=== PATIENT | male | born 1990 | race Caucasian/White ===

== ENCOUNTER 2019-12-14 09:47 | Emergency (ER) | payer OTHER ==
[~2019-12-14] VITALS: Ht 188 cm; Wt 118.2 kg
[~2019-12-14 09:47] MED LIST: FLOMAX0.4 MG PO; NORCO 325 MG-51 TA1 PO
[2019-12-14] MEDS ORDERED: ZYRTEC ALLERGY10 MG PO (11:01)
[2019-12-14] MEDS ORDERED: AUGMENTIN 875-1 EAC1 PO (11:01)
[2019-12-14 11:05] VITALS: BP 116/72
== END 2019-12-14 11:06 | disposition home or self-care (01) ==
LOC: ED 09:47
DX: J34.89 Other specified disorders of nose and nasal sinuses (principal)

== ENCOUNTER 2020-10-24 20:03 | Emergency (ER) | payer OTHER ==
[~2020-10-24] VITALS: Ht 188 cm; Wt 117.9 kg
[~2020-10-24 20:03] MED LIST changes: +AUGMENTIN 875-1 EAC1 PO; +ZYRTEC ALLERGY10 MG PO
[2020-10-24 21:07] LABS: HEMATOCRIT 42.7 % (42.0-52.0); HEMOGLOBIN 14.3 g/dL (13.5-18.0); MEAN CELL VOLUME 87 fl (78-100); MEAN CORPUSCULAR HEMOGLOBIN 29 pg (27-31); MEAN CORPUSCULAR HGB CONC 34 g/dL (33-37); MEAN PLATELET VOLUME 8.4 fl (7.4-10.4); PLATELET COUNT 186 K/mm3 (130-400); RED BLOOD COUNT 4.91 M/mm3 (4.20-5.60); RED CELL DISTRIBUTION WIDTH 12.4 % (11.5-14.5); WHITE BLOOD COUNT 3.3 K/mm3 (4.8-10.8)
[2020-10-24 21:25] LABS: LYMPHOCYTE 39 % (20-51); MONOCYTE 11 % (3-10); NEUTROPHILS 49 % (42-75)
[2020-10-24 21:54] VITALS: BP 124/88
== END 2020-10-24 21:54 | disposition home or self-care (01) ==
LOC: ED 20:03
PROVIDERS: Family Medicine
DX: U07.1 COVID-19 (principal)

== ENCOUNTER 2021-03-02 08:17 | Emergency (ER) | payer OTHER ==
[2021-03-02 10:04] VITALS: BP 143/93
== END 2021-03-02 10:10 | disposition home or self-care (01) ==
LOC: ED 08:17
DX: S93.401A Sprain of unspecified ligament of right ankle, initial encounter (principal); S90.31XA Contusion of right foot, initial encounter; Z88.5 Allergy status to narcotic agent; X58.XXXA Exposure to other specified factors, initial encounter; Y99.0 Civilian activity done for income or pay

== ENCOUNTER 2021-09-29 00:13 | Emergency (ER) | payer OTHER ==
[~2021-09-29] VITALS: Ht 188 cm; Wt 122.4 kg
[2021-09-29 01:09] LABS: BASO # 0.03 K/mm3 (0.02-0.10); EOS # 0.52 K/mm3 (0.04-0.40); EOS % 8.9 % (0.0-4.0); HEMOGLOBIN 16.4 g/dL (13.5-18.0); LYMPH# 1.72 K/mm3 (1.50-4.00); MEAN CELL VOLUME 86 fl (78-100); MEAN CORPUSCULAR HEMOGLOBIN 30 pg (27-31); MEAN CORPUSCULAR HGB CONC 34 g/dL (33-37); MEAN PLATELET VOLUME 8.8 fl (7.4-10.4); MONO # 0.62 K/mm3 (0.20-0.80); NEU # 2.96 K/mm3 (1.40-6.50); PLATELET COUNT 255 K/mm3 (130-400); RED BLOOD COUNT 5.56 M/mm3 (4.20-5.60); RED CELL DISTRIBUTION WIDTH 12.2 % (11.5-14.5); WHITE BLOOD COUNT 5.9 K/mm3 (4.8-10.8)
[2021-09-29 01:11] LABS: ALBUMIN 4.4 g/dL (3.5-5.0)
[2021-09-29 01:12] LABS: CALCIUM 9.5 mg/dL (8.3-10.5)
[2021-09-29 01:13] LABS: TOTAL PROTEIN 7.5 g/dL (6.4-8.3)
[2021-09-29 01:15] LABS: TOTAL BILIRUBIN 0.5 mg/dL (0.2-1.2)
[2021-09-29 01:26] LABS: URINE APPEARANCE CLOUDY; URINE BILIRUBIN NEGATIVE (NEGATIVE); URINE BLOOD 250 ery/uL (NEGATIVE); URINE COLOR YELLOW; URINE GLUCOSE NEGATIVE (NEGATIVE); URINE KETONE NEGATIVE (NEGATIVE); URINE LEUKOCYTE ESTERASE NEGATIVE (NEGATIVE); URINE NITRATE NEGATIVE (NEGATIVE); URINE PROTEIN(semi-quant) 1+ mg/dL (NEGATIVE); URINE UROBILINOGEN NORMAL (NORMAL)
[2021-09-29 01:27] LABS: URINE MUCUS PRESENT (NOT PRESENT)
[2021-09-29 07:58] LABS: BASO # 0.02 K/mm3 (0.02-0.10); EOS # 0.23 K/mm3 (0.04-0.40); EOS % 5.6 % (0.0-4.0); HEMATOCRIT 40.3 % (42.0-52.0); HEMOGLOBIN 13.5 g/dL (13.5-18.0); MEAN CELL VOLUME 89 fl (78-100); MEAN CORPUSCULAR HEMOGLOBIN 30 pg (27-31); MEAN CORPUSCULAR HGB CONC 34 g/dL (33-37); MEAN PLATELET VOLUME 8.9 fl (7.4-10.4); MONO # 0.46 K/mm3 (0.20-0.80); NEU # 2.27 K/mm3 (1.40-6.50); PLATELET COUNT 208 K/mm3 (130-400); RED BLOOD COUNT 4.55 M/mm3 (4.20-5.60); RED CELL DISTRIBUTION WIDTH 12.2 % (11.5-14.5); WHITE BLOOD COUNT 4.1 K/mm3 (4.8-10.8)
[2021-09-29 08:08] LABS: ALBUMIN 3.4 g/dL (3.5-5.0)
[2021-09-29 08:09] LABS: POTASSIUM 3.9 mmol/L (3.5-5.1)
[2021-09-29 08:10] LABS: CALCIUM 8.3 mg/dL (8.3-10.5)
[2021-09-29 08:11] LABS: TOTAL PROTEIN 5.8 g/dL (6.4-8.3)
[2021-09-29 08:13] LABS: TOTAL BILIRUBIN 0.4 mg/dL (0.2-1.2)
[2021-09-29 08:18] VITALS: BP 143/88
[2021-09-29] MEDS ORDERED: NORCO 10-325 T1 EACH PO (10:03)
== END 2021-09-29 08:18 | disposition home or self-care (01) ==
LOC: ED 00:13
PROVIDERS: Family Medicine; Nurse Practitioner
DX: N13.2 Hydronephrosis with renal and ureteral calculous obstruction (principal); Z20.822 Contact with and (suspected) exposure to COVID-19
CPT/HCPCS: J1885; J2270; J2405; J7030

== ENCOUNTER 2021-10-06 10:40 | Emergency (ER) | payer OTHER ==
[~2021-10-06] VITALS: Ht 188 cm; Wt 122.1 kg
[~2021-10-06 10:40] MED LIST changes: +NORCO 10-325 T1 EACH PO
[2021-10-06 12:09] LABS: BASO # 0.06 K/mm3 (0.02-0.10); EOS % 8.3 % (0.0-4.0); HEMATOCRIT 48.4 % (42.0-52.0); HEMOGLOBIN 16.5 g/dL (13.5-18.0); LYMPH# 1.55 K/mm3 (1.50-4.00); MEAN CELL VOLUME 86 fl (78-100); MEAN CORPUSCULAR HEMOGLOBIN 29 pg (27-31); MEAN CORPUSCULAR HGB CONC 34 g/dL (33-37); MEAN PLATELET VOLUME 8.4 fl (7.4-10.4); MONO # 0.32 K/mm3 (0.20-0.80); PLATELET COUNT 309 K/mm3 (130-400); RED BLOOD COUNT 5.64 M/mm3 (4.20-5.60); RED CELL DISTRIBUTION WIDTH 12.3 % (11.5-14.5); WHITE BLOOD COUNT 7.2 K/mm3 (4.8-10.8)
[2021-10-06 12:14] LABS: ALBUMIN 4.6 g/dL (3.5-5.0); POTASSIUM 4.3 mmol/L (3.5-5.1)
[2021-10-06 12:15] LABS: CALCIUM 9.7 mg/dL (8.3-10.5)
[2021-10-06 12:17] LABS: TOTAL PROTEIN 8.1 g/dL (6.4-8.3)
[2021-10-06 12:18] LABS: TOTAL BILIRUBIN 0.4 mg/dL (0.2-1.2)
[2021-10-06 12:26] LABS: URINE APPEARANCE CLEAR; URINE BILIRUBIN NEGATIVE (NEGATIVE); URINE BLOOD 250 ery/uL (NEGATIVE); URINE COLOR YELLOW; URINE GLUCOSE NEGATIVE (NEGATIVE); URINE KETONE NEGATIVE (NEGATIVE); URINE LEUKOCYTE ESTERASE NEGATIVE (NEGATIVE); URINE NITRATE NEGATIVE (NEGATIVE); URINE PROTEIN(semi-quant) 1+ (NEGATIVE); URINE UROBILINOGEN NORMAL (NORMAL)
[2021-10-06 12:27] LABS: URINE MUCUS PRESENT (NOT PRESENT)
[2021-10-06 14:55] VITALS: BP 108/66
== END 2021-10-06 14:50 | disposition home or self-care (01) ==
LOC: ED 10:40
PROVIDERS: Nurse Practitioner
DX: N20.2 Calculus of kidney with calculus of ureter (principal)
CPT/HCPCS: J1885; J2405; J7030

== ENCOUNTER 2021-11-05 10:06 | Emergency (ER) | payer OTHER ==
[2021-11-05 10:23] VITALS: BP 115/80
== END 2021-11-05 11:59 | disposition home or self-care (01) ==
LOC: ED 10:06
DX: R05.9 Cough, unspecified (principal); Z20.828 Contact with and (suspected) exposure to other viral communicable diseases; Z20.822 Contact with and (suspected) exposure to COVID-19